=== PATIENT | male | born 1985 | race Caucasian/White ===

== ENCOUNTER 2020-10-03 20:36 | Emergency (ER) | payer SELFPAY ==
[~2020-10-03] VITALS: Ht 170.2 cm; Wt 78.0 kg
[2020-10-03 20:40] VITALS: BP 113/71
[2020-10-03] MEDS ORDERED: ACET-2708 MT (23:48)
== END 2020-10-03 21:00 | disposition left against medical advice (07) ==
LOC: ER 20:36
DX: F10.129 Alcohol abuse with intoxication, unspecified (principal); Y90.0 Blood alcohol level of less than 20 mg/100 ml; Z53.21 Procedure and treatment not carried out due to patient leaving prior to being seen by health care provider

== ENCOUNTER 2020-10-03 21:44 | Emergency (ER) | payer SELFPAY ==
[~2020-10-03] VITALS: Ht 165.1 cm; Wt 73.0 kg
[2020-10-03] MEDS ORDERED: SODIUM CHLORIDE 0.9% 1,000 ML IV ONE (22:45)
[2020-10-03] MEDS ORDERED: TETANUS, DIPHTHERIA, PERTUSSIS VAC/PF 0.5ML (>7YR OLD) IM ONE (22:45)
[2020-10-03] MEDS ORDERED: BACITRACIN ZINC OINT UDPKT TOP ONE (22:45)
[2020-10-03] MEDS ORDERED: ACET-2708 MT (23:48)
[2020-10-04] MEDS ORDERED: LIDOCAINE HCL/EPINEPHRINE 1%-EPI 1:100,000 20 ML VIAL INFIL ONE
[2020-10-04 01:17] VITALS: BP 101/65
== END 2020-10-04 01:22 | disposition home or self-care (01) ==
LOC: ER 21:44
DX: S01.01XA Laceration without foreign body of scalp, initial encounter (principal); S09.8XXA Other specified injuries of head, initial encounter; F10.129 Alcohol abuse with intoxication, unspecified; Y90.9 Presence of alcohol in blood, level not specified; X58.XXXA Exposure to other specified factors, initial encounter; Y93.89 Activity, other specified; Y92.9 Unspecified place or not applicable
CPT/HCPCS: 12001; 70450; 72125; 90471; 90715; 96360; 96361; 99285; J3490; J7030